=== PATIENT | male | born 1960 | race Caucasian/White ===

== ENCOUNTER 2017-10-01 15:39 | Inpatient (IN) | payer OTHER ==
[~2017-10-01] VITALS: Ht 162.6 cm; Wt 66.7 kg
[2017-10-01] MEDS ORDERED: SODIUM CHLORIDE 0.9% 1000ML 1,000 ML IV STA (15:49)
[2017-10-01 16:07] LABS: BASOPHILS % 0.3 % (0.0-1.0); HEMATOCRIT 42.7 % (38.2-49.6); HEMOGLOBIN 13.8 g/dL (14.0-18.0); LYMPHOCYTES # (AUTO) 0.9 (1.0-3.2); MEAN CORPUSCULAR HEMOGLOBIN 30.3 pg (28-32); MEAN CORPUSCULAR HGB CONC 32.3 g/dL (31-35); MEAN CORPUSCULAR VOLUME 93.6 fL (81-99); MONOCYTES # (AUTO) 0.6 (0.2-0.8); MONOCYTES % 8.6 % (4.4-11.3); NEUTROPHILS # (AUTO) 5.3 (2.1-6.9); NEUTROPHILS % 77.8 % (38.7-80.0); PLATELET COUNT 295 x10e3/uL (140-360); RED BLOOD COUNT 4.56 x10e6/uL (4.3-5.7); RED CELL DISTRIBUTION WIDTH 15.5 % (11.7-14.4)
[2017-10-01 16:14] LABS: INR 3.42; PROTHROMBIN TIME 32.4 seconds (11.9-14.5)
[2017-10-01 16:15] LABS: PARTIAL THROMBOPLASTIN TIME 40.5 seconds (23.8-35.5)
[2017-10-01 16:21] LABS: ALANINE AMINOTRANSFERASE 51 IU/L (0-55); ALBUMIN 3.8 g/dL (3.5-5.0); ALKALINE PHOSPHATASE 90 IU/L (40-150); ANION GAP 15.8 mmol/L (8-16); BLOOD UREA NITROGEN 23 mg/dL (7-26); BUN/CREATININE RATIO 15 (6-25); CALCIUM 10.2 mg/dL (8.4-10.2); CARBON DIOXIDE 27 mmol/L (22-29); CHLORIDE 105 mmol/L (98-107); CREATINE KINASE 86 IU/L (30-200); CREATININE, SERUM 1.54 mg/dL (0.72-1.25); EST GLOMERULAR FILTRATION RATE 47 ML/MIN (60-); GLUCOSE 103 mg/dL (74-118); POTASSIUM 4.8 mmol/L (3.5-5.1); SODIUM 143 mmol/L (136-145)
--- NOTE | 2017-10-01 16:38 | Diagnostic Imaging Report ---
History:Syncope, history of stroke Comparison studies:None Technique: Axial images were obtained from the skull base to the vertex. Coronal and sagittal images reconstructed from the axial data. Intravenous contrast: None Findings: Scalp/skull: No abnormalities. Extra-axial spaces: No masses. No fluid collections. Brain sulci: Mildly prominent. Ventricles: Mild compensatory dilatation. No hydrocephalus. Parenchyma: Cortical-based hypodensity in the left parietal lobe, secondary to remote interval. No masses, hemorrhage, acute or chronic cortical vascular insults. Sellar/suprasellar region: No abnormalities. Craniocervical junction: Patent foramen magnum. No Chiari one malformation. Incidental findings: Atherosclerotic calcifications in the carotid siphons . Impression: No acute abnormalities. Chronic findings: 1. Mild generalized volume loss. 2. Remote insult in the left parietal lobe Signed by: DR Alfie Anne M.D. on 10/01/2017 4:35 PM
[2017-10-01 16:40] LABS: THYROID STIMULATING HORMONE 12.337 uIU/mL (0.350-4.940)
--- NOTE | 2017-10-01 16:41 | Diagnostic Imaging Report ---
PROCEDURE: A single AP view of the chest. COMPARISON: None. INDICATIONS: OVERHEATED; DIZZY FINDINGS: Lines/tubes: None. Lungs: The lungs are well inflated and clear. There is no evidence of pneumonia or pulmonary edema. Pleura: There is no pleural effusion or pneumothorax. Heart and mediastinum: The heart and the mediastinum are unremarkable. Bones: No acute bony abnormality. IMPRESSION: No acute cardiopulmonary disease. Dictated by: Henry Smith M.D. on 10/01/2017 at 16:47 Electronically approved by: Henry Smith M.D. on 10/01/2017 at 16:47
[2017-10-01] MEDS ORDERED: SODIUM CHLORIDE 0.9% 1000ML 1,000 ML IV SCH (17:29)
[2017-10-01] MEDS ORDERED: ASPIRIN 81 MG CHEW TAB PO ONE ×2 (17:30)
[2017-10-01] MEDS ORDERED: WARFARIN SODIUM2 MG PO (17:50)
[2017-10-01] MEDS ORDERED: LISINOPRIL2.5 MG PO (17:50)
[2017-10-01] MEDS ORDERED: AMIODARONE HCL200 MG PO (17:50)
[2017-10-01] MEDS ORDERED: PRAVASTATIN SOD80 MG PO (17:50)
[2017-10-01] MEDS ORDERED: TOPROL XL25 MG PO (17:50)
[2017-10-01] MEDS ORDERED: WARFARIN SODIUM3 MG PO ×2 (17:50)
--- NOTE | 2017-10-01 19:09 | Consultation ---
DATE OF CONSULTATION: October 01, 2017 CARDIOLOGY CONSULTATION REFERRING PHYSICIAN: Dr. Xu Sanchez REASON FOR CONSULTATION: Syncope. HISTORY OF PRESENT ILLNESS: Mr. Demarco is a 57-year-old man with history of nonischemic cardiomyopathy, chronic systolic heart failure, severe, with LVEF reportedly 25%, status post cardiac catheterization within the last 2 months revealing nonischemic cardiomyopathy at the time. Offered in the past a LifeVest but per patient this was not approved. Awaiting a followup for ICD, now past 90 days on optimal medical therapy. While standing today, he had sudden episode of loss of consciousness with no preceding complaints. Patient did not report any remembrance of chest pain, shortness of breath, headache, lightheadedness or palpitations. He just suddenly dropped. He has a history of prior CVAs. He is unsure about past history of arrhythmias; however, he has been on warfarin therapy as well as amiodarone recently changed from previous flecainide. On telemetry, he is in normal sinus rhythm. His EKG reveals normal sinus rhythm with slightly prolonged QT. His 1st set of enzymes are negative. He is currently chest pain-free with no complaints. PAST MEDICAL HISTORY: As per HPI. Also, history of blindness. SOCIAL HISTORY: Denies smoking, alcohol or drugs. FAMILY HISTORY: Significant for various family members with previous diagnosis of cancer of various types. HOME MEDICATIONS: Reviewed and include metoprolol, lisinopril, amiodarone, warfarin and atorvastatin. PHYSICAL EXAMINATION VITALS: Temperature 97.1, heart rate 61, respiratory rate 16, blood pressure 102/56. O2 sat 95% on room air. GENERAL: No acute distress, alert, active. NECK: No JVD. No carotid bruits. CHEST: Clear to auscultation. CARDIOVASCULAR: Regular rate and rhythm, normal S1 and S2, no S3, no S4, no murmurs or rubs. ABDOMEN: Soft and nontender. EXTREMITIES: No cyanosis, clubbing or edema. Warm distal extremities. LABS: Studies reviewed. White blood cell count 6.8, hemoglobin 13.8, platelets 295. Creatinine 1.54, BUN 23, bicarbonate 27, sodium 143, potassium 4.8, chloride 105, glucose 103. Albumin 3.8, total bilirubin 0.5, AST 41, ALT 51, alk phos 90. TSH is 12.5. INR 3.4. CT with remote insult to the left parietal lobe. Mild generalized volume loss. Carotid siphons with atherosclerotic changes. ASSESSMENT 1. Syncope, suspected arrhythmogenic. 2. Cardiomyopathy, nonischemic. 3. Chronic systolic heart failure, severe per report. 4. History of strokes. 5. Arrhythmia, unspecified, on chronic anticoagulation with warfarin. 6. Hypothyroidism. 7. Blindness. RECOMMENDATIONS 1. Hold warfarin for supratherapeutic INR. 2. EP consultation for ICD placement. I suspect this was an arrhythmogenic episode of syncope, an episode of sudden cardiac . 3. Obtain echocardiogram. 4. Hydrate with IV fluids. 5. Serial cardiac enzymes. 6. Resume home cardiovascular medications except warfarin. Thank you for the opportunity to participate in the care of Mr. Minh Demarco. Will follow closely. Job#: [id number]
[2017-10-01 20:00] VITALS: BP 129/58
[2017-10-01 20:30] VITALS: BP 129/58
[2017-10-01] MEDS: SIMVASTATIN 40 MG TAB PO SCH (21:39)
[2017-10-02] VITALS: BP 128/61
[2017-10-02 00:22] LABS: CREATINE KINASE 69 IU/L (30-200)
[2017-10-02 04:00] VITALS: BP 134/62
[2017-10-02 04:56] LABS: BASOPHILS % 0.3 % (0.0-1.0); EOSINOPHILS % 0.3 % (0.0-6.0); HEMATOCRIT 36.7 % (38.2-49.6); HEMOGLOBIN 11.9 g/dL (14.0-18.0); LYMPHOCYTES # (AUTO) 1.5 (1.0-3.2); LYMPHOCYTES % 23.9 % (18.0-39.1); MEAN CORPUSCULAR HEMOGLOBIN 30.4 pg (28-32); MEAN CORPUSCULAR HGB CONC 32.4 g/dL (31-35); MEAN CORPUSCULAR VOLUME 93.9 fL (81-99); MONOCYTES % 15.8 % (4.4-11.3); NEUTROPHILS # (AUTO) 3.6 (2.1-6.9); NEUTROPHILS % 59.4 % (38.7-80.0); PLATELET COUNT 266 x10e3/uL (140-360); RED BLOOD COUNT 3.91 x10e6/uL (4.3-5.7); RED CELL DISTRIBUTION WIDTH 15.9 % (11.7-14.4)
[2017-10-02 05:14] LABS: BILIRUBIN,URINE NEGATIVE (NEGATIVE); CLARITY,URINE CLEAR (CLEAR); COLOR,URINE YELLOW (YELLOW); KETONES,URINE NEGATIVE (NEGATIVE); LEUKOCYTE ESTERASE ,URINE NEGATIVE (NEGATIVE); NITRITE,URINE NEGATIVE (NEGATIVE); PROTEIN,URINE DIPSTICK NEGATIVE (NEGATIVE); URINE UROBILINOGEN 0.2 mg/dL (0.2 - 1)
[2017-10-02 05:18] LABS: AMPHETAMINES SCREEN,URINE NEGATIVE (NEGATIVE); BENZODIAZEPINES SCREEN,URINE NEGATIVE (NEGATIVE); PHENCYCLIDINE SCREEN,URINE NEGATIVE (NEGATIVE)
[2017-10-02 05:22] LABS: INR 3.49; PROTHROMBIN TIME 32.9 seconds (11.9-14.5)
[2017-10-02 05:27] LABS: ANION GAP 13.5 mmol/L (8-16); BLOOD UREA NITROGEN 20 mg/dL (7-26); BUN/CREATININE RATIO 19 (6-25); CALCIUM 8.9 mg/dL (8.4-10.2); CARBON DIOXIDE 23 mmol/L (22-29); CHLORIDE 109 mmol/L (98-107); CREATININE, SERUM 1.04 mg/dL (0.72-1.25); EST GLOMERULAR FILTRATION RATE > 60 ML/MIN (60-); GLUCOSE 91 mg/dL (74-118); MAGNESIUM 1.7 MG/DL (1.3-2.1); PHOSPHORUS 3.1 MG/DL (2.3-4.7); POTASSIUM 4.5 mmol/L (3.5-5.1); SODIUM 141 mmol/L (136-145)
[2017-10-02 05:29] LABS: BACTERIA,URINE RARE /HPF; WBC,URINE (MAN) 0-5 /HPF (0-5)
[2017-10-02 05:54] LABS: CREATINE KINASE 73 IU/L (30-200)
[2017-10-02 05:55] LABS: THYROID STIMULATING HORMONE 5.517 uIU/mL (0.350-4.940)
--- NOTE | 2017-10-02 07:34 | Progress Note ---
DATE: October 02, 2017 CARDIOLOGY PROGRESS NOTE SUBJECTIVE: No complaints. OBJECTIVE VITAL SIGNS: Temperature 97.5, heart rate 58, respiratory rate 18, blood pressure 134/62. Still receiving IV fluids, normal saline 75 mL an hour. Will ask this be discontinued. GENERAL: No acute distress, alert. NECK: JVD to lower third of neck. CHEST: Clear to auscultation. CARDIOVASCULAR: Regular rate and rhythm. Normal S1 and S2. No S3, no S4. ABDOMEN: Soft and nontender. EXTREMITIES: No edema. STUDIES: Reviewed. White blood cell 6.1, hemoglobin 11.9, platelets 266,000. INR 3.4. Creatinine 1.04. CARDIOVASCULAR MEDICATIONS: Reviewed. Warfarin on hold. Beta luis, ESME inhibitor, statin and amiodarone. ASSESSMENT 1. Syncope, suspect arrhythmogenic. 2. Chronic severe systolic heart failure, status post recent angiogram with reported nonischemic cardiomyopathy and reported ejection fraction less than 35%. 3. Blindness. 4. 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 RECOMMENDATIONS: EP has been consulted. Please keep on telemetry. Continue current cardiovascular medications. Continue to hold warfarin. Suspect arrhythmia. Previous history of stroke is reported. On warfarin for these. Unclear if history of AFib or not, however, has been on amiodarone by outside treating physician. Will continue for now. Job#: [id number] ORI
[2017-10-02] MEDS ORDERED: CARVEDILOL 3.125 MG TAB PO SCH (09:00)
[2017-10-02] MEDS ORDERED: LOSARTAN POTASSIUM 25 MG TAB PO SCH (09:00)
[2017-10-02 09:24] VITALS: BP 130/59
[2017-10-02] MEDS: METOPROLOL SUCCINATE 25 MG TAB XL PO SCH (10:15)
[2017-10-02] MEDS: AMIODARONE HCL 200 MG TAB PO SCH ×2 (10:15→17:27)
[2017-10-02] MEDS: LISINOPRIL 2.5 MG TAB PO SCH (10:15)
--- NOTE | 2017-10-02 11:18 | History and Physical ---
PRIMARY CARE DOCTOR: Dr. Reyes at [facility]. FARMWORKER FUR: Dr. Macdonald This is hospital coverage for Dr. Redd Singh. HISTORY: Mr. Demarco is a pleasant 57-year-old gentleman with syncope. The patient with known nonischemic cardiomyopathy with left ventricular ejection fraction reported at 25%. The patient had heart catheterization in 2017 showing the persistent nonischemic nature of this cardiomyopathy. The patient in March 2017 had attempts to get Life Vest authorization by his hotel receptionist, although this was unsuccessful. The patient claims he was scheduled for repeat echo in the next couple of weeks to reassess his ejection fraction to see if he is a candidate for special advanced cardiac devices. The patient was in his usual state of health. He was on his feet standing. He began to have a little bit of dizziness. He told his family that he needed to go inside the house. Without further warning, he lost consciousness, but his son was with him and caught him. The patient did not have any significant confusion once he awoke. He comes to the emergency room. He was admitted. Chest x-ray unremarkable. CT of head with old left parietal CVA likely, mild decreased volume, otherwise no acute events. PAST MEDICAL HISTORY: Blindness, on disability, nonischemic cardiomyopathy, 25% ejection fraction, history of CVA, history of arrhythmia, on chronic anticoagulation, hypothyroidism, blindness. MEDICATIONS: List reviewed per electronic record. ALLERGIES: NO KNOWN DRUG ALLERGIES. SOCIAL HISTORY: No smoking. No drinking. No drugs. FAMILY HISTORY: Noncontributory. REVIEW OF SYSTEMS GENERAL: There is no weight changes. ENDOCRINE: No David disease. HEENT: No recurrent bloody nose. PULMONARY: No asthma. CARDIAC: No pacemaker device in place. GI: No constipation. : No blood in the urine. NEUROLOGICAL: No seizures. PSYCHIATRIC: No depression. DERMATOLOGIC: Normal. PHYSICAL EXAMINATION VITALS: Afebrile. Vital signs noted per electronic record. GENERAL: No acute distress. Alert and calm. In bed right now. HEENT: Normocephalic and atraumatic. NECK: Supple. Throat midline. LUNGS: Bilateral air entry. Limited with mild decreased breath sounds at base. CARDIOVASCULAR: S1 and S2. No murmurs, rubs or gallops. ABDOMEN: Soft and nontender. EXTREMITIES: No clubbing. No cyanosis. There is no edema. INTEGUMENT: No rash. No purpura. LABS: BUN 23, creatinine 1.5, potassium 4.8. White count 7, hematocrit 43 and platelets 295,000. INR is 3.4. TSH 12.4. IMPRESSION AND PLAN 1. Syncope, likely cardiogenic. 2. Sudden cardiac , presumed. 3. Nonischemic cardiomyopathy. 4. Hypothyroidism, actively elevated TSH now. 5. History of old stroke. 6. Blindness. 7. Cardiac arrhythmia, on anticoagulation. At this time, will hold the warfarin due to the high INR. The patient will get telemetry. EP evaluation for AICD placement. Will likely have to adjust the thyroid dose. Once he is better, will get PT evaluation and see how sturdy he is on his feet. Thank you very much, Dr. Reyes, for allowing Dr. Singh and I the chance to participate in the care of Mr. Demarco. Do not hesitate to contact me if I can help in any way. Job#: [id number] MISSY
--- NOTE | 2017-10-02 13:23 | Consultation ---
DATE OF CONSULTATION: October 02, 2017 NEUROLOGY CONSULTATION HISTORY OF PRESENT ILLNESS: Mr. Demarco is a 57-year-old, [id number]-[id number] man, with past medical history significant for nonischemic cardiomyopathy, who presented to the emergency center at [facility] on October 01, 2017, following a syncopal event. On the afternoon of October 01, 2017, Mr. Demarco was working on a door leading into his garage when he experienced the sudden onset of dizziness, which is further described as an unsteady sensation with a possible vertiginous component, and profuse sweating. The patient does not report chest pain or tightness, palpitations, shortness of breath, an epigastric rising sensation, or numbness or tingling associated with dizziness and profuse sweating. Within seconds of the onset of dizziness and profuse sweating, the patient lost consciousness. The duration of loss of consciousness is not known. Mr. Demarco's son witnessed the event, and there was no reported stiffening or shaking of the extremities, tongue biting, or bladder/bowel incontinence. When he regained consciousness, the patient was immediately oriented to person, place, time, and situation. Mr. Demarco's son assisted him into the house and called the patient's as well as emergency medical services. Paramedics evaluated Mr. Demarco at his home and determined he was medically stable. However, given his extensive cardiovascular history, it was recommended the patient call his primary care physician for further instructions. Mr. Demarco did call his primary care physician, who recommended he call his express manager regarding his symptoms. The express manager recommended the patient proceed to [facility] where Mr. Demarco was admitted for further evaluation and treatment of his symptoms. Mr. Demarco does not report a personal history of seizures. There is no family history of seizures. There is no history of head trauma or central nervous system infection. The patient does report occasional syncopal events in the past. REVIEW OF SYSTEMS: Legally blind, syncopal event. Otherwise, a 12-point review of systems is negative. PAST MEDICAL HISTORY: Hyperlipidemia, nonischemic cardiomyopathy, prior history of gastritis, occasional headaches, prior ischemic strokes times 2 without residual deficits, bilateral carotid artery stenosis, legal blindness. 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 PAST HOSPITALIZATIONS: Surgeries/procedures as listed, facial cellulitis, Staphylococcus aureus infection (as a child). FAMILY MEDICAL HISTORY: The patient's paternal and maternal grandparents are . Their medical histories are unknown. The patient's father is from lymphatic carcinoma. The patient's mother is from coronary artery disease with myocardial infarction. Mr. Demarco had 3 siblings, 2 brothers and 1 sister. One brother is from liver cancer. The second brother and sister are alive, but their medical histories are unknown. Mr. Demarco has no biological children. Patient does report multiple paternal relatives are from various cancers. SOCIAL HISTORY: The patient is . He is on disability. The patient does not report current or prior tobacco or recreational drug use. He does drink an occasional beer or glass of wine. HOME MEDICATIONS 1. Warfarin 3 mg by mouth on Tuesdays and , warfarin 4.5 mg by mouth all other days. 2. Amiodarone 200 mg by mouth twice daily. 3. Lisinopril 2.5 mg by mouth daily. 4. Metoprolol 12.5 mg by mouth daily. 5. Pravastatin 80 mg by mouth daily. ALLERGIES: NO KNOWN DRUG ALLERGIES. NO KNOWN FOOD ALLERGIES. NO KNOWN ALLERGIES TO LATEX. NO KNOWN ALLERGIES TO IODINE OR OTHER CONTRAST MATERIALS. PHYSICAL EXAMINATION VITAL SIGNS: Height 64 inches, weight 147 pounds BMI 25.2 kg per meter squared. Blood pressure 134/62 mmHg. Pulse 58 beats per minute. Respiratory rate 18 breaths per minute. Oxygen saturation 97% on room air. GENERAL: The patient is awake and alert, does not appear distressed. HEENT: Normocephalic, atraumatic. Pupils are opacified. Moist mucous membranes. NECK: Supple. No appreciable thyromegaly. No appreciable carotid bruits. CV: S1, S2, RRR. No murmurs, rubs, or gallops. RESPIRATORY: Clear to auscultation bilaterally. No wheezes, rhonchi or rales. EXTREMITIES: The skin is warm and dry. No clubbing, cyanosis, or edema. The posterior tibial and dorsalis pedis pulses are 2+ and symmetric. SKIN: No rashes or lesions. NEUROLOGIC EXAMINATION MEMORY/ATTENTION: The patient is awake and alert, oriented to person, place, time, and situation. CRANIAL NERVES: Cranial nerve I: Not tested. Cranial nerves II, III, IV, and : Pupils are opacified. Extraocular movements are intact. No nystagmus. Cranial nerve V: Sensation to light touch and pinprick is intact in the bilateral V1 through V3 distributions. Strength of the temporalis and masseter muscles is within normal limits. Cranial nerve VII: The face is symmetric as are all facial movements. Strength is within normal limits. Cranial nerve VIII: Hearing is intact to finger rub bilaterally. Cranial nerves IX and X: The soft palate elevates equally and symmetrically. Cranial nerve XI: Normal strength of the sternocleidomastoid and trapezius muscles. Cranial nerve XII: The tongue protrudes midline and moves symmetrically from side to side. STRENGTH: Bulk is normal. Strength is 5/5 in the bilateral deltoids, biceps, triceps, wrist flexors and extensors, finger flexors and extensors, intrinsic hand muscles, hip flexors, knee flexors and extensors, ankle dorsiflexion and plantar flexion, and intrinsic foot muscles. Tone is normal. DTRs: Deep tendon reflexes are 2+ and symmetric at the triceps, biceps, brachioradialis, patellas, and Achilles. Plantar responses are flexor bilaterally. SENSATION: Sensation is intact to light touch and pinprick in both arms and both legs. CEREBELLAR: Dtujgd-rprj-fyvdzb and heel-barron movements are intact without dysmetria or other impairment. GAIT: Deferred. SPEECH: Spontaneous speech is normal without appreciable dysarthria or aphasia. Repetition is intact. INVOLUNTARY MOVEMENTS: None. PRONATOR DRIFT: None. LABORATORY DATA: Sodium 141, potassium 4.5, chloride 109, carbon dioxide 23, anion gap 13.5, BUN 20, creatinine 1.04, estimated GFR greater than 60. WRG-uu-ejamadjrlj ratio 19. Glucose 91, calcium 8.9, phosphorus 3.1, magnesium 1.7. From October 01, 2017, total bilirubin 0.5, AST 41, ALT 51, alkaline phosphatase 90. Total protein 7.5, albumin 3.8, globulin 3.7, kxelqhu-fi-uysudaww ratio 1.0. Creatine kinase 86, 69, 73. CK-MB 0.90, 0.90, 0.90. Troponin I less than 0.001, less than 0.001, less 0.001. Hemoglobin A1c 5.7. Total cholesterol 144, triglycerides 227, LDL cholesterol 63, HDL cholesterol 36. TSH 5.517, Free T4 index 2.2210, thyroxine (T4) 7.34, T3 uptake 30.26. The CBC with differential and platelets reveals a white blood cell count of 6.12 with 59.4% neutrophils, 23.9% lymphocytes, 15.8% monocytes, 0.3% eosinophils, and 0.3% basophils. The hemoglobin and hematocrit are 11.9 and 36.7, respectively. The platelet count is 266. PT 32.9 and INR 3.49. Urinalysis was unremarkable. A urine drug screen was negative. DIAGNOSTIC STUDIES 1. Electrocardiogram, 10/01/2017: Sinus bradycardia at 57 beats per minute. 2. Chest x-ray, 10/01/2017: No acute cardiopulmonary disease. 3. CT of the brain without contrast, 10/01/2017: On my review, there is no evidence of recent large territorial ischemia, hemorrhage, mass, or mass effect. There is a remote ischemic stroke in the left parietal lobe (posterior left MCA distribution). There is mild diffuse cerebral atrophy, more than expected for age. 4. Echocardiogram, 10/02/2017: Ejection fraction 25% to 30%. Mitral valve prolapse. Mild mitral and tricuspid regurgitation. Trace to mild aortic insufficiency. ASSESSMENT AND PLAN: Mr. Demarco is a 57-year-old man with an extensive cardiovascular medical history admitted with a syncopal event. The patient's neurological examination is nonfocal with the exception of the impairment in vision. The patient's laboratory data and other diagnostic studies have been reviewed and are documented above. Based on the patient's description of his symptoms, there is a very low suspicion for seizure. It is probable the event experienced by the patient on October 01, 2017, was a syncopal event secondary to cardiovascular disease. Continued evaluation and treatment of the patient's cardiovascular disease is recommended. There are no recommendations from the neurology service at this time. Please call again with any questions or concerns. Time spent: 70 minutes. Job#: [id number] MATTY COTE
[2017-10-02 14:06] LABS: CREATINE KINASE MB 0.8 ng/mL (0-5.0)
[2017-10-02 20:00] VITALS: BP 112/51
[2017-10-02] MEDS: SIMVASTATIN 40 MG TAB PO SCH (21:27)
--- NOTE | 2017-10-02 23:41 | Consultation ---
DATE OF CONSULTATION: October 02, 2017 REASON FOR CONSULT: Cardiomyopathy, consider defibrillator, syncope. HISTORY: This is a 57-year-old with history of nonischemic dilated cardiomyopathy diagnosed more than 3 months ago, he is legally blind. He states he has been short of breath. He was congestive heart failure class 3, when he was diagnosed. He was started on medical therapy. He is feeling a little better. However, he had an episode of syncope when he passed out while he was at home. He recovered simultaneously after a few seconds, he has remained under close observation and remains in sinus rhythm, hemodynamically stable. Patient states he had 2 or 3 episodes over the last 2 years that was similar. Otherwise, denies palpitations, denies dizzy spells. REVIEW OF SYSTEMS CONSTITUTIONAL: Negative. CARDIOVASCULAR: As per HPI. RESPIRATORY: Negative. GASTROINTESTINAL: Negative. GENITOURINARY: Negative. MUSCULOSKELETAL: Negative. EYES: Negative. ENT: Negative. ALLERGY/IMMUNOLOGY: Negative. PSYCHIATRIC: Negative. PAST MEDICAL HISTORY: Cardiomyopathy as above. PAST SURGICAL HISTORY: Negative. SOCIAL HISTORY: Denies smoking, alcohol. FAMILY HISTORY: No premature coronary artery disease. PHYSICAL EXAM VITAL SIGNS: 130/60, pulse 68, respirations 20, O2 sat 98%. GENERAL: In no acute distress. HEENT: Moist mucous membranes. CARDIOVASCULAR: Regular. RESPIRATORY: Clear. ABDOMEN: Soft, nontender. MUSCULOSKELETAL: 2+ distal pulses. NEUROLOGICAL: No focal deficit. PSYCHIATRIC: Normal thought process. SKIN: No lesions. EKG: Sinus rhythm. IMPRESSIONS 1. Nonischemic dilated cardiomyopathy with ejection fraction historically around 25% for more than 3 months. 2. Syncope of unknown etiology, cannot rule out arrhythmia. 3. Congestive heart failure, class 3. RECOMMENDATIONS: Discussed with the patient in detail. He may be a candidate for primary prevention of sudden cardiac for a defibrillator. This is depending on results for the new echocardiogram performed today. If the EF is 35 or less, then a defibrillator will be indicated, in case the ejection fraction has recovered, it will be reasonable to perform an electrophysiology study to assess for inducible ventricular arrhythmias. I explained to the patient that depending on the results, will make decision of final recommendations in case will require an electrophysiology study, patient will have to be transferred to another facility with electrophysiology capabilities. Patient voices understanding and is in agreement with the plan. Thank you for letting us participate on Mr. Demarco's healthcare. Job#: [id number] CQ
[2017-10-03 00:09] VITALS: BP 118/54
[2017-10-03 04:00] VITALS: BP 132/60
[2017-10-03 05:16] LABS: INR 2.54; PROTHROMBIN TIME 25.7 seconds (11.9-14.5)
[2017-10-03 05:17] LABS: PARTIAL THROMBOPLASTIN TIME 38.2 seconds (23.8-35.5)
--- NOTE | 2017-10-03 06:48 | Diagnostic Imaging Report ---
EXAM: CHEST SINGLE (PORTABLE), AP 1 view INDICATION: CHF COMPARISON: None FINDINGS: LINES/TUBES: None LUNGS: No consolidations or edema. PLEURA: No effusions or pneumothorax. HEART AND MEDIASTINUM: Normal size and contour. BONES AND SOFT TISSUES: No acute findings. IMPRESSION: No acute thoracic abnormality. Signed by: Dr. Lizzie Bartlett M.D. on 10/03/2017 6:44 AM
[2017-10-03 07:50] VITALS: BP 106/48
[2017-10-03 08:29] VITALS: BP 106/48
[2017-10-03] MEDS: AMIODARONE HCL 200 MG TAB PO SCH ×2 (08:52→16:38)
[2017-10-03] MEDS: LISINOPRIL 2.5 MG TAB PO SCH (08:52)
[2017-10-03] MEDS: METOPROLOL SUCCINATE 25 MG TAB XL PO SCH (08:52)
[2017-10-03] MEDS ORDERED: ACETAMINOPHEN 325 MG TAB PO PRN (09:15)
--- NOTE | 2017-10-03 11:37 | Progress Note ---
DATE: October 03, 2017 CARDIOLOGY PROGRESS NOTE SUBJECTIVE: No new complaints today other than headache overnight which has now resolved after Tylenol administration. OBJECTIVE VITALS: Temperature 98.4, heart rate 55, respiratory rate 18, blood pressure 106/48, O2 sat 95% on room air. GENERAL: No acute distress. Alert. NECK: No JVD. CHEST: Clear to auscultation. CARDIOVASCULAR: Regular rate and rhythm. Normal S1, S2. ABDOMEN: Soft. EXTREMITIES: No edema. Warm distal extremities. CARDIOVASCULAR MEDICATIONS 1. Metoprolol succinate 12.5 mg daily. 2. Lisinopril 2.5 mg daily. 3. Amiodarone 200 mg b.i.d. 4. Simvastatin 80 mg nightly. STUDIES: For today, none available. Yesterday hemoglobin was 11.9, platelets 266. Creatinine 1.04. Serial troponins were negative. His LDL was 63, HDL 36, total cholesterol 144, triglycerides 227. TSH was 5.5. Chest x-ray: No acute thoracic abnormality. TELEMETRY: Normal sinus rhythm. ASSESSMENT 1. Syncope. 2. Severe systolic heart failure with improvement in ventricular systolic function on most recent echocardiogram. 3. History of carotid artery atresia and blindness. 4. Chronic anticoagulation for unclear reason, suspect arrhythmia as the patient is also on amiodarone by outpatient treating grievance and appeals specialist. 5. Hypothyroidism. RECOMMENDATION: Will discuss with patient echo findings. Appreciate cardiac electrophysiology input. Patient would benefit from EP study. Will discuss with patient possible transfer to [facility] for further evaluation. If EP study is abnormal, may need defibrillator. If normal, outpatient followup advised at that point. Job#: [id number]
[2017-10-03 12:09] VITALS: BP 121/51
[2017-10-03 17:08] VITALS: BP 102/52
--- NOTE | 2017-10-04 04:22 | Discharge Summary ---
No dictation, length (00:02). EMI MOYA MD Job#: [id number] GE
--- NOTE | 2017-10-04 04:47 | Discharge Summary ---
DATE OF ENCOUNTER: October 03, 2017 HOSPITAL PHYSICIAN: Dr. Redd Singh PRIMARY DOCTOR: Dr. Reyes PRIMARY POCKET SECRETARY ASSEMBLER: Dr. Macdonald PRIMARY DIAGNOSES 1. Syncope, possible sudden cardiac . 2. Nonischemic cardiomyopathy with reduced ejection fraction, slightly improved to 40% now. 3. Hypothyroidism. 4. Old stroke. 5. Blindness. 6. Cardiac arrhythmia, on anticoagulation. Mr. Demarco is a pleasant 57-year-old gentleman with reduced ejection fraction heart failure. Patient reportedly with 25% ejection fraction. As outpatient, he was being assessed to see if he needs AICD. Patient, however, had a syncope episode here. Cardiology assessed it to be likely cardiac in etiology. However, when they repeated echocardiogram, the ejection fraction mobilized slightly to the 40% range. Therefore, patient was not automatically able to get the AICD. It was recommended the patient to get EP testing and therefore, patient was transferred for higher level of care to the medical center. Accepting physician, Dr. Iyer of [facility]. INR was 2.54 upon discharge, where as earlier it was 3.42 on warfarin. DISPOSITION: [facility]. ACTIVITY: Bedrest. DIET: Cardiac diet. FOLLOWUP: With physicians at [facility]. Greater than 30 minutes in direct care and coordination on this date. Job#: [id number]
== END 2017-10-03 18:09 | disposition short-term general hospital (02) | DRG 309 ==
LOC: ER 15:39 → ERHOLD 17:29 → MED/SURG2 18:25
PROVIDERS: ADMIT Internal Medicine; ATTEND Internal Medicine
DX: I49.9 Cardiac arrhythmia, unspecified (principal); I50.22 Chronic systolic (congestive) heart failure; I11.0 Hypertensive heart disease with heart failure; H54.7 Unspecified visual loss; Z86.73 Personal history of transient ischemic attack (TIA), and cerebral infarction without residual deficits; Z79.01 Long term (current) use of anticoagulants; E03.9 Hypothyroidism, unspecified
CPT/HCPCS: 36415; 70450; 71045; 80048; 80053; 80061; 80307; 81001; 82550; 82553; 83036; 83735; 84100; 84436; 84443; 84479; 84484; 85025; 85610; 85730; 87086; 93005; 93306; 97139; 99284; J7030